=== PATIENT | female | born 1960 | race Caucasian/White ===

== ENCOUNTER 2016-08-18 14:55 | Outpatient (CLI) | payer OTHER ==
--- NOTE | 2016-08-18 16:34 | DIAGNOSTIC IMAGING REPORT ---
PROCEDURE: MR LOWER EXT JOINT WO CONT-LT INDICATION: LT KNEE PAIN TECHNIQUE: PD and FAT-SAT PD sagittal and coronal images. FAT-SAT PD axial images. High-resolution T2 sagittal images of the cruciate ligaments. (Total of 6 sequences). COMPARISON: None. FINDINGS: Normal collateral and anterior cruciate ligament. Chronic partial tear of the posterior cruciate ligament. Normal menisci. Mild chondromalacia of the medial and lateral compartments. Quadriceps and patellar tendons are normal. Mild chondromalacia patella. Tiny popliteal cyst. There is no effusion. Mild prepatellar soft tissue contusion. IMPRESSION: 1. 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 Mild prepatellar soft tissue contusion
== END 2016-08-18 23:00 | disposition home or self-care (01) ==
LOC: MRI SRH 14:55
DX: S83.92XA Sprain of unspecified site of left knee, initial encounter (principal); M94.262 Chondromalacia, left knee; M79.9 Soft tissue disorder, unspecified